=== PATIENT | female | born 1990 | race Caucasian/White ===

== ENCOUNTER 2017-02-27 10:04 | Emergency (ER) | payer OTHER ==
[~2017-02-27] VITALS: Ht 170.2 cm; Wt 111.6 kg
[~2017-02-27 10:04] MED LIST: ALBUTEROL17 GM IH; BACTRIM,SEPT1 TABLET PO; CHERATUSSIN AC473 ML PO; FIORICET 50-301 EACH PO; FLEXARIL; HYDROCODON-ACE1 EAC8; IBUPROFEN800 MG; KEFLEX500 MG PO; MELOXICAM15 MG PO; METHOCARBAMOL750 MG; MOTRIN800 MG PO; NORCO 10-325 T1 EACH PO; NORCO 5/3251 TABLET PO; ORTHO TRI-CYCL1 EACH PO; PREDNISONE20 M1 PO; SPRINTEC1 EACH; SPRINTEC1 EACH PO; SYMBICORT60 INHALA1; TOPAMAX100 MG PO; TORADOL10 MG PO; VENLAFAXINE HC150 M1 PO; WELLBUTRIN XL150 MG PO; ZOFRAN ODT4 MG PO; ZOFRAN4 MG PO
[2017-02-27] MEDS ORDERED: BACTRIM,SEPT1 TABLET PO (13:34)
[2017-02-27 13:49] VITALS: BP 136/94
== END 2017-02-27 13:50 | disposition home or self-care (01) ==
LOC: EME 10:04
PROC: 0H91XZZ Drainage of Face Skin, External Approach (ICD-10-PCS; principal; 2017-02-27)
DX: L03.211 Cellulitis of face (principal); M79.7 Fibromyalgia; F17.200 Nicotine dependence, unspecified, uncomplicated; Z90.49 Acquired absence of other specified parts of digestive tract; Z90.89 Acquired absence of other organs; Z91.030 Bee allergy status
CPT/HCPCS: 99281; 99283